=== PATIENT | female | born 1975 | race Caucasian/White ===

== ENCOUNTER 2018-03-18 12:16 | Emergency (ER) | payer BC, OTHER ==
[2018-03-18 12:38] VITALS: BP 134/74; PULSE 61; TEMP 99; BMI 25.9
--- NOTE | 2018-03-18 12:49 | PDOC ---
History of Present Illness - General Chief Complaint: Pain, Acute Stated Complaint: ABD PAIN Time Seen by Provider: 03/18/18 12:49 Past History - Past Medical History Allergies/Adverse Reactions: Allergies Allergy/AdvReac Type Severity Reaction Status Date / Time Shellfish AdvReac Severe Swelling Verified 03/18/18 12:29 Home Medications: Ambulatory Orders NK [No Known Home Medication] 03/18/18 COPD: No - Suicide/Smoking/Psychosocial Hx Smoking Status: No Smoking History: Never smoked Number of Cigarettes Smoked Daily: 0 *Physical Exam - Vital Signs Last Vital Signs Temp Pulse Resp BP Pulse Ox 99 F 61 17 134/74 100 03/18/18 12:25 03/18/18 12:25 03/18/18 12:25 03/18/18 12:25 03/18/18 12:25
--- NOTE | 2018-03-18 13:31 | PDOC ---
History of Present Illness - General Chief Complaint: Pain, Acute Stated Complaint: ABD PAIN Time Seen by Provider: 03/18/18 12:49 History Source: Patient Exam Limitations: No Limitations - History of Present Illness Initial Comments: CHIEF COMPLAINT: 42 y/o afebrile female with no significant PMH c/o lower abdominal pressure and increased urinary frequency. HISTORY OF PRESENT ILLNESS: She has been having symptoms intermittently for the past week with worsened more constant symptoms since yesterday. She denies fever, chills, n/v/d, CP, SOB, hematuria, dysuria. Vital signs on arrival are within normal limits. REVIEW OF SYSTEMS: GENERAL/CONSTITUTIONAL: No fever/chills. No weakness. No weight change. HEAD, EYES, EARS, NOSE AND THROAT: No change in vision. No ear pain or discharge. No sore throat. CARDIOVASCULAR: No chest pain or shortness of breath. RESPIRATORY: No cough, wheezing, or hemoptysis. GASTROINTESTINAL: +lower abdominal pressure. No nausea, vomiting, diarrhea. GENITOURINARY: +increased urinary frequency. No dysuria or hematuria. MUSCULOSKELETAL: No joint or muscle swelling or pain. No neck or back pain. SKIN: No rash or easy bruising. NEUROLOGIC: No headache, vertigo, loss of consciousness, or loss of sensation. PHYSICAL EXAM: GENERAL: The patient is awake, alert, and fully oriented, in no acute distress. She is well appearing and ambulatory. HEAD: Normal with no signs of trauma. ENT: Pupils equal, round and reactive to light, extraocular movements intact, sclera anicteric, conjunctiva clear. Neck supple. LUNGS: Clear to auscultation bilaterally. Normal excursion. No respiratory distress or use of accessory muscles. CV: RRR, S1/S2, no MRG. Cap refill < 2 sec. ABDOMEN: Soft, non-distended, suprapubic TTP. No flank pain b/l. No rebound, guarding or rigidity. No Mcburney's point TTP. BACK: No CVA TTP b/l. EXTREMITIES: Normal range of motion, no edema. NEUROLOGICAL: Normal speech, normal gait. CN II-XII grossly intact. SKIN: Warm, dry, normal turgor, no rashes or lesions noted. Past History - Past Medical History Allergies/Adverse Reactions: Allergies Allergy/AdvReac Type Severity Reaction Status Date / Time Shellfish AdvReac Severe Swelling Verified 03/18/18 12:29 Home Medications: Ambulatory Orders Nitrofurantoin Monohyd/M-Cryst [Macrobid -] 100 mg PO BID #14 capsule 03/18/18 COPD: No - Suicide/Smoking/Psychosocial Hx Smoking Status: No Smoking History: Never smoked Number of Cigarettes Smoked Daily: 0 *Physical Exam - Vital Signs Last Vital Signs Temp Pulse Resp BP Pulse Ox 99 F 61 17 134/74 100 03/18/18 12:25 03/18/18 12:25 03/18/18 12:25 03/18/18 12:25 03/18/18 12:25 Medical Decision Making - Medical Decision Making A/P: 42 y/o female with suprapubic pain and increased urinary frequency. Plan is as follows: 1. hcg 2. UA 3. Urine culture +UTI Will send rx for macrobid INstructed patient to drink plenty of fluids and f/u with her PCP within 1 week The patient verbalizes understanding of all instructions, has no further questions and is awaiting discharge. *DC/Admit/Observation/Transfer Diagnosis at time of Disposition: UTI (urinary tract infection) Qualifiers: Urinary tract infection type: acute cystitis Hematuria presence: with hematuria Qualified Code(s): N30.01 - Acute cystitis with hematuria - Discharge Dispostion Disposition: HOME Condition at time of disposition: Good - Prescriptions Prescriptions: Nitrofurantoin Monohyd/M-Cryst [Macrobid -] 100 mg PO BID #14 capsule - Referrals - Patient Instructions Printed Discharge Instructions: DI for Urinary Tract Infection (UTI) Additional Instructions: Discharge Instructions: -You have a urinary tract infection; a prescription for antibiotics has been sent to your pharmacy -Please drink at least 64oz of water daily -Follow up with your doctor within 1 week. - Post Discharge Activity Forms/Work/School Notes: Back to Work
[2018-03-18 13:32] LABS: HCG,QUALITATIVE URINE NEGATIVE
[2018-03-18 14:15] LABS: URINE APPEARANCE CLOUDY; URINE BILIRUBIN NEGATIVE (<2.0 mg/dL); URINE COLOR YELLOW; URINE GLUCOSE (UA) NEGATIVE (NEGATIVE); URINE KETONE NEGATIVE (NEGATIVE); URINE NITRITE NEGATIVE (NEGATIVE); URINE UROBILINOGEN NEGATIVE mg/dL (0.2-1.0)
[2018-03-18 14:17] LABS: URINE LEUK ESTERASE 3+ (NEGATIVE); URINE PROTEIN 1+ (NEGATIVE)
[2018-03-18 14:21] LABS: EPI CELLS RARE /HPF (FEW); URINE MUCUS RARE; YEAST RARE
== END 2018-03-18 14:34 | disposition home or self-care (01) ==
LOC: JERFT 12:16 → JER 12:16 → JERFT 14:34
DX: N30.01 Acute cystitis with hematuria (principal)
CPT/HCPCS: 81003; 81015; 84703; 87086; 87186; 99281-25